=== PATIENT | male | born 2000 | race Caucasian/White ===

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

== ENCOUNTER → 2022-12-18 16:30 | Outpatient (CLI) | payer BC, SELFPAY ==
--- NOTE | 2022-12-18 | XR_ITS ---
PROCEDURE INFORMATION: Exam: XR Lumbosacral Spine Exam date and time: 12/18/2022 4:42 PM Age: 22 years old Clinical indication: Low back pain; Patient HX: Upper and lower back pain; Additional info: Acute midline lbp w/ right sided sciatica TECHNIQUE: Imaging protocol: Radiologic exam of the lumbosacral spine. Views: 2 or 3 views. COMPARISON: [facility] XR scoliosis survey 10/04/2018 3:41 PM FINDINGS: Bones/joints: Mild scoliosis. Normal alignment. Soft tissues: Unremarkable. IMPRESSION: Mild scoliosis.
--- NOTE | 2022-12-18 | XR_ITS ---
PROCEDURE INFORMATION: Exam: XR Thoracic Spine Exam date and time: 12/18/2022 4:42 PM Age: 22 years old Clinical indication: Pain in thoracic spine; Patient HX: Upper and lower back pain TECHNIQUE: Imaging protocol: Radiologic exam of the thoracic spine. Views: 2 views. COMPARISON: [facility] XR scoliosis survey 10/04/2018 3:41 PM FINDINGS: Bones/joints: Mild scoliosis. No acute fracture. Soft tissues: Unremarkable. IMPRESSION: Mild scoliosis.
== END ==
PROVIDERS: PCP Physician Assistant; Visit Provider Physician Assistant
DX: M54.6 Pain in thoracic spine (principal); M54.41 Lumbago with sciatica, right side
CPT/HCPCS: 72070; 72100

== ENCOUNTER → 2023-01-05 16:09 | Outpatient (CLI) | payer BC, OTHER, SELFPAY ==
--- NOTE | 2023-01-05 16:14 | MR_ITS ---
PROCEDURE INFORMATION: Exam: MR Lumbar Spine Without Contrast Exam date and time: 01/05/2023 4:21 PM Age: 22 years old Clinical indication: Lumbago with sciatica; Right. TECHNIQUE: Imaging protocol: Magnetic resonance imaging of the lumbar spine without contrast. COMPARISON: [facility] XR LUMBAR SPINE 2-3V 12/18/2022 4:42 PM FINDINGS: Bones/joints: Unremarkable. No fracture. Normal alignment. Spinal cord: Visualized cord, conus medullaris and cauda equina are unremarkable without compression. L1-L2: No significant disc bulge or herniation. No severe spinal canal stenosis. No significant neural foraminal narrowing. L2-L3: No significant disc bulge or herniation. No severe spinal canal stenosis. No significant neural foraminal narrowing. L3-L4: No significant disc bulge or herniation. No severe spinal canal stenosis. No significant neural foraminal narrowing. L4-L5: No significant disc bulge or herniation. No severe spinal canal stenosis. No significant neural foraminal narrowing. L5-S1: No significant disc bulge or herniation. No severe spinal canal stenosis. No significant neural foraminal narrowing. Soft tissues: Unremarkable. IMPRESSION: Unremarkable MRI lumbar spine.
== END ==
PROVIDERS: PCP Physician Assistant; Visit Provider Physician Assistant
DX: M54.41 Lumbago with sciatica, right side (principal)
CPT/HCPCS: 72148; 76376

== ENCOUNTER 2024-12-05 09:24 | Outpatient (CLI) | payer BC, SELFPAY ==
--- NOTE | 2024-12-05 09:30 | XR_ITS ---
FINAL REPORT CLINICAL HISTORY: ATYPICAL CHEST PAIN FINDINGS: 2 views of the chest were obtained . The heart is normal in size. The mediastinum is within normal limits. The lungs are clear. There is no pneumothorax. Osseous structures demonstrate thoracic scoliosis convex to the right. IMPRESSION: No acute cardiopulmonary process. Reviewed, Interpreted and Dictated by Luis Jim MD Transcribed by Sandie Saleh Authenticated and [facility]
== END 2024-12-05 23:59 | disposition home or self-care (01) ==
LOC: RAD 09:26
PROVIDERS: PCP Family Medicine; Visit Provider Family Medicine
DX: R07.89 Other chest pain (principal)
CPT/HCPCS: 71046